=== PATIENT | female | born 1965 | race Caucasian/White ===

== ENCOUNTER → 2016-07-20 | Outpatient (CLI) | payer OTHER | LOC: FIMAGING 09:18 | DX: Z12.31 Encounter for screening mammogram for malignant neoplasm of breast (principal) | CPT/HCPCS: G0202 ==

== ENCOUNTER → 2017-08-27 | Outpatient (CLI) | payer OTHER | LOC: FIMAGING 08:25 | PROVIDERS: ATTEND Obstetrics & Gynecology | DX: Z12.31 Encounter for screening mammogram for malignant neoplasm of breast (principal) ==

== ENCOUNTER → 2017-09-07 | Outpatient (CLI) | payer OTHER | LOC: FIMAGING 13:54 | PROVIDERS: ATTEND Obstetrics & Gynecology | DX: R92.8 Other abnormal and inconclusive findings on diagnostic imaging of breast (principal) ==

== ENCOUNTER → 2018-02-11 | Outpatient (CLI) | payer OTHER | LOC: FIMAGING 13:32 | PROVIDERS: ATTEND Obstetrics & Gynecology | DX: R92.8 Other abnormal and inconclusive findings on diagnostic imaging of breast (principal) ==

== ENCOUNTER 2018-07-27 11:12 | Emergency (ER) | payer OTHER ==
[2018-07-27] MEDS ORDERED: fentaNYL 100 MCG/2 ML INJ IVP ONE (12:01)
[2018-07-27] MEDS ORDERED: NS 1,000 ML IV ONE (12:01)
--- NOTE | 2018-07-27 12:02 | EDPHY ---
General - History Smoking Status: Never smoked Time Seen by Provider: 07/27/18 11:37 Narrative: CLINICAL IMPRESSION: Pleuritic chest discomfort, right lower rib pain, right upper quadrant abdominal pain ASSESSMENT/PLAN: Very pleasant 53-year-old female presents to the emergency department from her primary care doctor's office today for evaluation of reproducible right lower anterior rib pain x4 days associated with bilateral lower rib pain over the last several weeks. Patient has had a severe cough in the setting of flu several weeks ago which is slowly improving but rib pain has persisted. Pain today is becoming worse, but not associated with nausea, vomiting, anorexia, fever, chills, lower abdominal pain, back pain. Vital signs on arrival show hypertension but no hypoxia, tachycardia, or respiratory distress. Pain is very reproducible to palpation and movement. EKG and cardiac enzymes are both reassuring. Chest x-ray shows no acute cardiopulmonary findings. Right upper quadrant ultrasound read by radiologist showing no evidence of acute cholecystitis, cholelithiasis, choledocholithiasis, and an incidental subcentimeter hepatic cyst was noted. This result was relayed to the patient. She did have an elevated D-dimer of 0.72 and therefore CTA chest was performed. She does not have a pulmonary embolism or other acute cardiopulmonary abnormality. Remainder of labs reassuring with no evidence of leukocytosis, pancreatitis, transaminitis, renal insufficiency, UTI, pyelonephritis, electrolyte imbalance or metabolic disturbance. Patient was seen and examined and discussed with Dr. Leblanc. It was felt at this point that she did not need additional CT abdomen pelvis imaging. Suspect possible pleurisy versus musculoskeletal component. Home care discussed. Patient has pain medication at home. Advised primary care follow-up in the next 24-48 hours. Low threshold for return to ED sooner as outlined and discharge papers and person. DIFFERENTIAL DX: Differential includes but not limited to in no particular order, acute cholecystitis, cholelithiasis, hepatitis, pancreatitis, pulmonary embolism, pneumonia, spontaneous pneumothorax, SBO, nephrolithiasis, UTI, pyelonephritis. ED PROCEDURES: See lab and/or imaging results below ED COURSE: 12:45 P.M.: Labs reviewed by myself. Elevated D-dimer .72. Labs reassuring, no leukocytosis, renal insufficiency, transaminitis, pancreatitis. Awaiting formal right upper quadrant ultrasound results. Discussed CT a with the patient who agrees. She is declining further analgesics at this time. CTA read by Dr. Jin, no evidence of acute pulmonary embolism. Right upper quadrant ultrasound also unremarkable with no evidence of acute cholecystitis or cholelithiasis. Incidental subcentimeter hepatic cyst noted. This result was relayed to the patient. Lab work is otherwise completely reassuring. Patient was seen and examined by Dr. Leblanc as well. It is felt at this point patient may have a musculoskeletal etiology to her pain or pleurisy. Home care discussed and PCP follow-up recommended. CHIEF COMPLAINT: Right lower rib pain HPI: 53-year-old female presents to the emergency department with 4 days of right lower rib pain. Patient reports in mid May she was diagnosed with influenza. She had fevers for upwards of a week. She was coughing so forcefully that she developed bilateral, lower, lateral rib pain that has been persistent since May. On Wednesday she was doing some mild yard work and began noticing pain to the right lower anterior rib. This is worsened with movement, pressure, and deep breathing. She does feel short of breath with this. She went to a primary care doctor and was sent to the emergency department today. There was some concern over her liver or gallbladder. However, patient states she has no pain with eating, ate a full meal today and reports no associated nausea, vomiting, fever or chills. She reports a history of a spontaneous pneumothorax on the left in her mid 20s requiring a chest tube. She otherwise reports no pulmonary or cardiac history. She denies chest pain. She reports some constipation with bowel movements but no [place]-colored stools or diarrhea. No lower abdominal pain. She does not drink alcohol heavily. Pain does not radiate into the back. No flank pain or UTI symptoms. She does take a estrogen based pill for hot flashes. No personal or family history of DVT or PE. No recent car or air travel. No recent surgery. No cancer history. No asymmetric leg swelling. PAST MEDICAL HISTORY: None reported See nurse/triage notes for additional history if applicable Pertinent Past Surgical History: Chest tube for spontaneous pneumothorax in her 20s Family History: No reported family history of cardiovascular disease Social History: , at bedside, nonsmoker, otherwise healthy REVIEW OF SYSTEMS: All other systems negative Constitutional: No fever, no chills, appetite change. Eyes: No discharge, vision change ENT: No sore throat, congestion, ear pain. Cardiovascular: Positive for inferior right chest pain, no palpitations.] Respiratory: No cough, positive for shortness of breath. Gastrointestinal: Positive for abdominal pain, no vomiting, diarrhea. Genitourinary: No hematuria, dysuria, flank pain, pelvic pain Musculoskeletal: No back pain, joint swelling, joint pain, myalgias. Skin: No rashes, color change. Neurological: No headache, dizziness, weakness. PHYSICAL EXAM: General Appearance: Alert, oriented, appropriate, cooperative, appears uncomfortable, at bedside, non-toxic appearing, hypertensive no hypoxia. HEENT: Oropharynx clear is no erythema or exudates, no tonsillar hypertrophy or asymmetry. Dentition without abnormality.] Respiratory: There are no retractions, lungs are clear to auscultation. Reproducible chest wall pain to right anterior inferior ribs wrapping laterally along the lower rib cage into the posterior ribs. This is worsened with deep inspiration. Cardiac: Regular rate and rhythm, no murmurs or gallops. Gastrointestinal: Abdomen is soft, exquisitely tender with light palpation of right upper quadrant and lower ribs. Positive Mitchell sign, bowel sounds normal , no masses/hernia, no rigidity, guarding or focal peritoneal findings. Neurological: [ Alert and oriented x 3 Skin: Warm, dry, no rashes, no nodules on palpation. Musculoskeletal: Extremities are symmetrical, full range of motion, no tenderness, deformity, swelling, or erythema. No asymmetric calf swelling, pain or erythema Psychiatric: Patient is oriented X 3, there is no agitation. MEDICAL DECISION MAKING: Secondary supervising physician at time of evaluation was Dr. Leblanc. Diagnosis: Pleurisy, rib pain . New, requires workup Summary: See Assessment and Plan for summary of ED visit Clinical lab tests: ordered / reviewed. Independent visualization of images, tracing, or specimens: Yes. Decision to obtain medical records or history from someone other than the patient: No Review / Summarize previous medical records: None available Discussed patient with another provider: Dr. Leblanc who also saw and examined patient, radiologist Patient Progress: Stable for discharge. (Brian Landry) Medical Decision Making: I also saw this patient in the ED. I reviewed the history of influenza illness and then some continuing pain to both sides lower chest. She was gardening several days ago and has had increased pain. Pain was more severe last night. I have reviewed the laboratory and imaging study results. These are all normal. I examined the patient and she is tender really over the ribs as well as right upper quadrant. I believe this is likely musculoskeletal. (Wade Leblanc Nasim) - Diagnostics Imaging Results: Imaging Impressions Abdomen Ultrasound 07/27/18 12:01 Impression: 1. Right upper quadrant tenderness during imaging, however, no gallstones or secondary findings of cholecystitis identified by ultrasound imaging. 2. Incidental septated cyst left lobe liver. Chest X-Ray 07/27/18 12:01 Impression: Normal. Chest/Thorax CTA 07/27/18 13:08 Impression: 1. No evidence of pulmonary embolus using CT protocol. 2. No significant abnormality within the chest. Incidental biapical pleural parenchymal thickening. Findings discussed with Brian Landry PAC at 13:56 hour, 07/27/2018. - Objective Vital Signs: Initial Vital Signs Temperature (C) 36.5 C 07/27/18 11:13 Heart Rate 83 07/27/18 11:13 Respiratory Rate 16 07/27/18 11:13 Blood Pressure 149/102 H 07/27/18 11:13 O2 Sat (%) 99 07/27/18 11:13 O2 Delivery Mode Room Air Allergies/Adverse Reactions: Phenothiazines Allergy (Severe, Verified 05/31/09 15:26) LOCK JAW Home Medications: Medication Instructions Recorded Microgestin 21 1.5-30 Tab 07/27/18 NK [No Known Home Meds] 07/27/18 Laboratory Results: Laboratory Results 07/27/18 11:30 07/27/18 11:30 07/27/18 07/27/18 07/27/18 13:34 11:30 11:30 WBC RBC Hgb Hct MCV MCH MCHC RDW Plt Count MPV Neut % (Auto) Lymph % (Auto) [place] % (Auto) Eos % (Auto) Baso % (Auto) Nucleat RBC Rel Count Absolute Neuts (auto) Absolute Lymphs (auto) Absolute Monos (auto) Absolute Eos (auto) Absolute Basos (auto) Absolute Nucleated RBC Immature Gran % Immature Gran # D-Dimer 0.72 ug/mLFEU H ug/mLFEU (0.00-0.50) Sodium 137 mEq/L mEq/L (135-145) Potassium 4.2 mEq/L mEq/L (3.5-5.2) Chloride 106 mEq/L mEq/L (97-110) Carbon Dioxide 22 mEq/l mEq/l (22-31) Anion Gap 9 mEq/L mEq/L (6-14) BUN 19 mg/dL mg/dL (7-23) Creatinine 0.7 mg/dL mg/dL (0.6-1.0) Estimated GFR > 60 Glucose 84 mg/dL mg/dL (70-100) Calcium 9.0 mg/dL mg/dL (8.5-10.4) Total Bilirubin 0.5 mg/dL mg/dL (0.1-1.4) Conjugated Bilirubin 0.3 mg/dL mg/dL (0.0-0.5) Unconjugated Bilirubin 0.2 mg/dL mg/dL (0.0-1.1) AST 25 IU/L IU/L (14-46) ALT 32 IU/L IU/L (9-52) Alkaline Phosphatase 51 IU/L IU/L (38-126) Total Protein 7.3 g/dL g/dL (6.3-8.2) Albumin 4.2 g/dL g/dL (3.5-5.0) Lipase 79 IU/L IU/L (23-300) Urine Color PALE YELLOW Urine Appearance CLEAR Urine pH 6.0 (5.0-7.5) Ur Specific [place] 1.011 (1.002-1.030) Urine Protein NEGATIVE (NEGATIVE) Urine Ketones TRACE H (NEGATIVE) Urine Blood NEGATIVE (NEGATIVE) Urine Nitrate NEGATIVE (NEGATIVE) Urine Bilirubin NEGATIVE (NEGATIVE) Urine Urobilinogen NEGATIVE EU EU (0.2-1.0) Ur Leukocyte Esterase TRACE H (NEGATIVE) Urine RBC NONE SEEN /hpf /hpf (0-3) Urine WBC 1-3 /hpf /hpf (0-3) Ur Epithelial Cells TRACE /lpf /lpf (NONE-1+) Urine Bacteria TRACE /hpf H /hpf (NONE SEEN) Urine Mucus TRACE /lpf /lpf (NONE-1+) Urine Glucose NEGATIVE (NEGATIVE) 07/27/18 11:30 WBC 7.30 10^3/uL 10^3/uL (3.80-9.50) RBC 4.58 10^6/uL 10^6/uL (4.18-5.33) Hgb 14.0 g/dL g/dL (12.6-16.3) Hct 42.4 % % (38.0-47.0) MCV 92.6 fL fL (81.5-99.8) MCH 30.6 pg pg (27.9-34.1) MCHC 33.0 g/dL g/dL (32.4-36.7) RDW 13.2 % % (11.5-15.2) Plt Count 235 10^3/uL 10^3/uL (150-400) MPV 10.1 fL fL (8.7-11.7) Neut % (Auto) 57.7 % % (39.3-74.2) Lymph % (Auto) 32.6 % % (15.0-45.0) [place] % (Auto) 7.9 % % (4.5-13.0) Eos % (Auto) 1.1 % % (0.6-7.6) Baso % (Auto) 0.4 % % (0.3-1.7) Nucleat RBC Rel Count 0.0 % % (0.0-0.2) Absolute Neuts (auto) 4.21 10^3/uL 10^3/uL (1.70-6.50) Absolute Lymphs (auto) 2.38 10^3/uL 10^3/uL (1.00-3.00) Absolute Monos (auto) 0.58 10^3/uL 10^3/uL (0.30-0.80) Absolute Eos (auto) 0.08 10^3/uL 10^3/uL (0.03-0.40) Absolute Basos (auto) 0.03 10^3/uL 10^3/uL (0.02-0.10) Absolute Nucleated RBC 0.00 10^3/uL 10^3/uL (0-0.01) Immature Gran % 0.3 % % (0.0-1.1) Immature Gran # 0.02 10^3/uL 10^3/uL (0.00-0.10) D-Dimer Sodium Potassium Chloride Carbon Dioxide Anion Gap BUN Creatinine Estimated GFR Glucose Calcium Total Bilirubin Conjugated Bilirubin Unconjugated Bilirubin AST ALT Alkaline Phosphatase Total Protein Albumin Lipase Urine Color Urine Appearance Urine pH Ur Specific [place] Urine Protein Urine Ketones Urine Blood Urine Nitrate Urine Bilirubin Urine Urobilinogen Ur Leukocyte Esterase Urine RBC Urine WBC Ur Epithelial Cells Urine Bacteria Urine Mucus Urine Glucose Medications Given: Discontinued Medications Fentanyl (Sublimaze) 50 mcg IVP EDNOW ONE Stop: 07/27/18 12:02 Last Admin: 07/27/18 12:07 Dose: 50 mcg Sodium Chloride (Ns) 1,000 mls @ 0 mls/hr IV EDNOW ONE; Wide Open PRN Reason: Protocol Stop: 07/27/18 12:02 Last Admin: 07/27/18 12:07 Dose: 1,000 mls Departure - Departure Disposition: Home, Routine, Self-Care Clinical Impression: Pleurisy, Rib pain on right side Condition: Good Instructions: Pleurisy (ED) Additional Instructions: DISCHARGE INSTRUCTIONS FROM YOUR DOCTOR Thank you for visiting our emergency department today. You were treated by a physician instruction assistant principal today and your case was reviewed with our ED Attending physician. Please keep in mind that discharge from the emergency department does not mean that there is nothing wrong - it simply means that we have not identified an emergency condition that requires further evaluation or treatment in the hospital. You should always plan to follow up with primary care for re- evaluation of your condition in the next 2-3 days. If you have been referred to a specialist, please call as soon as possible (today or tomorrow) to schedule your follow up appointment at the appropriate time. DIAGNOSTIC EVALUATION IN THE EMERGENCY DEPARTMENT INCLUDED CHEST X-RAY, EKG, CARDIAC ENZYMES, D-DIMER, PANCREAS ENZYMES, LIVER ENZYMES, CBC, METABOLIC PANEL. YOU ALSO RECEIVED A RIGHT UPPER QUADRANT ULTRASOUND AND A CT ANGIOGRAM OF THE CHEST. WE DID NOT IDENTIFY AN ACUTELY INFECTED GALLBLADDER OR GALLSTONES , YOU HAVE A SMALL [address] ANGIOGRAM OF THE CHEST SHOWS NO EVIDENCE OF PULMONARY EMBOLISM, PULMONARY MASS, PNEUMONIA, OR PNEUMOTHORAX. LABS ARE REASSURING, NO ELEVATION IN WHITE BLOOD COUNT, NO EVIDENCE OF PANCREATITIS, NORMAL LIVER ENZYMES, NO METABOLIC DISTURBANCE OR ELECTROLYTE IMBALANCE. YOU DID HAVE A MILDLY ELEVATED D-DIMER, BUT AGAIN YOU DO NOT HAVE A BLOOD CLOT. PLEASE REST, USE ICE OR HEAT, CONSIDER AN ANTI-INFLAMMATORY, AND USE PAIN MEDICATION ONLY IF NEEDED. DO NOT DRIVE OR DRINK ALCOHOL WHILE TAKING NARCOTIC PAIN MEDICATION. PLEASE BE AWARE, NARCOTICS CAN CAUSE CONSTIPATION, LETHARGY, AND INCREASE YOUR RISK OF FALLING. DO NOT TAKE TYLENOL AT THE SAME TIME VICODIN OR PERCOCET. FOLLOW UP WITH A PRIMARY CARE DOCTOR IN 24-48 HOURS TO RECHECK. RETURN TO THE EMERGENCY DEPARTMENT IMMEDIATELY FOR WORSENING OR SEVERE PAIN, DEVELOPMENT OF FEVER OR CHILLS, NAUSEA OR VOMITING, CHEST PAIN OR SHORTNESS OF BREATH, OR ANY OTHER CONCERN. People present with illnesses and injuries in different ways, and it is always possible that we have missed something. You may always return for re-evaluation if symptoms worsen or if they are not improving or if you develop new/different symptoms. Again, thank you for choosing our emergency department. We hope that you feel better. Referrals: Darcy Paiz MD [Primary Care Provider] - 1-2 days without fail
[2018-07-27 12:08] LABS: PLATELET COUNT 235 10^3/uL (150-400)
[2018-07-27] MEDS ORDERED: IOPAMIDOL (ISOVUE 370) 100 ML BTL IV ONE (13:12)
[2018-07-27 15:05] VITALS: BP 125/74
== END 2018-07-27 15:05 | disposition home or self-care (01) ==
DX: R09.1 Pleurisy (principal); R10.11 Right upper quadrant pain; R79.89 Other specified abnormal findings of blood chemistry; E86.9 Volume depletion, unspecified
CPT/HCPCS: 96374; J3010; Q9967

== ENCOUNTER → 2018-09-20 | Outpatient (CLI) | payer OTHER | LOC: FIMAGING 15:56 ==